=== PATIENT | male | born 1970 | race Caucasian/White ===

== ENCOUNTER 2023-12-16 14:50 | Emergency (ER) | payer BC, SELFPAY ==
[2023-12-16 15:10] VITALS: BP 141/105
[2023-12-16 18:45] VITALS: BP 127/73; BMI 33.5
[2023-12-16 19:11] LABS: ALT (SGPT) 23 U/L (0-50); AST (SGOT) 25 U/L (17-59); Albumin 4.4 g/dl (3.5-5.0); Alkaline Phosphatase 64 U/L (38-126); Blood Urea Nitrogen 11 mg/dl (9-20); Calcium 8.6 mg/dl (8.4-10.2); Carbon Dioxide 24 mmol/L (22-30); Chloride 98 mmol/L (98-107); Estimated Creatinine Clearance > 125 ml/min; Glucose 139 mg/dl (70-99); Sodium 132 mmol/L (135-145); Total Bilirubin 1.7 mg/dl (0.2-1.3); eGFR > 60.00
[2023-12-16 19:15] LABS: Monotest Negative (Negative)
--- NOTE | 2023-12-16 19:17 | ED.GENMED ---
History of Present Illness
General
Chief Complaint: Fever
Source: patient and spouse
Exam Limitations: none
Time Seen by Provider: 12/16/23 19:02
Nursing documentation reviewed up to this point in time: agreed with
History of Present Illness
History of Present Illness:
52-year-old male presents emergency department complaining of fever of 101 since last night. He was taking amoxicillin off and on for the past 2 weeks due to infected tooth. He saw dentist 9 days ago. He began feeling better and stopped the
antibiotics. He last took Advil at 12 PM today.
Past History
Past History
ED Past Medical History: HTN
ED Past Surgical History: None
Review of Systems
Review of Systems
Allergies reviewed?: Yes
All Other Systems: Not applicable
Constitutional: Reports fever
EENT: Reports mouth pain
Respiratory: Reports no symptoms
Cardiac: Reports no symptoms
ABD/GI: Reports no symptoms
: Reports no symptoms
Musculoskeletal: Reports no symptoms
Skin: Reports no symptoms
Neurological: Reports no symptoms
Endocrine: Reports no symptoms
Hematologic/Lymphatic: Reports no symptoms
Psychiatric: Reports no symptoms
Phy Exam
Physical Exam
Physical Exam:
Physical Exam
General: no apparent distress, not acutely ill
Neck: supple. no meningeal signs. normal posterior pharynx
Heart: s1/s2 regular rate and rhythm, no murmur. equal radial
pulses.
HEENT: Pupils equal round reactive to light, EOMI, poor dentition, no drainage, mildly erythematous gingiva
Lungs: no acute respiratory distress. clear bilaterally
Abdomen: normal bowel sounds. not tender. no CVAT
Neuro: alert and oriented. no focal neurological deficits cranial nerves II through XII intact
Skin: no rash
Psychiatric: well kept. interactive and cooperative
Extremities: no edema. no calf tenderness. negative homans. good distal pulses
Course
Orders/Labs/Results
Orders:
Orders
12/16/23 18:44
IV Insert/Care/Rem.- Treatment PRN
O2 Therapy [RESP] Urgent
Titrate/Wean O2 to maintain O2 sat greater than (%): 93
Special Instructions: TO MAINTAIN CONTINUOUS O2 SATS > OR = 93%
Pulse Ox/cont/shift [RESP] Urgent
Quantity: 1
Special Instructions: CONTINUOUS
12/16/23 18:45
Lactic Acid Q4H
Comment: ON ICE, CANCEL 2ND ORDER IF FIRST LACTIC ACID LEVEL <2
12/16/23 18:53
CMP [Comprehensive Metabolic Panel] Urgent
Complete Blood Count/With Diff Urgent
Lactic Acid Urgent
Monotest Urgent
12/16/23 20:35
Potassium Chloride 10% Elixir [KCl Elixir] 40 meq PO NOW STA
12/16/23 22:45
Lactic Acid Q4H
Comment: ON ICE, CANCEL 2ND ORDER IF FIRST LACTIC ACID LEVEL <2
Abnormal Lab Results
12/16/23
18:53
WBC 4.2 L 10^3/uL
(4.8-10.8)
Hgb 18.2 H g/dL
(13.0-18.0)
MCH 32.1 H pg
(27.0-31.0)
Plt Count 61 L 10^3/uL
(130-400)
Absolute Lymphs (auto) 0.3 L 10^3/uL
(1.2-3.4)
Neutrophils % 84.8 H %
(42.2-75.2)
Lymphocytes % 6.4 L %
(20.5-51.1)
Sodium 132 L mmol/L
(135-145)
Potassium 3.0 L mmol/L
(3.5-5.1)
Glucose 139 H mg/dl
(70-99)
Total Bilirubin 1.7 H mg/dl
(0.2-1.3)
12/16/23 18:53
12/16/23 18:53
Vital Signs
Initial and Last Documented VS:
Initial Vital Signs
Temp Pulse Resp BP Pulse Ox
101.7 F H 97 16 141/105 97
12/16/23 15:10 12/16/23 15:10 12/16/23 15:10 12/16/23 15:10 12/16/23 15:10
Last Documented Vital Signs
Temp Pulse Resp BP Pulse Ox
98.4 F 72 16 127/73 100
12/16/23 18:45 12/16/23 18:45 12/16/23 18:45 12/16/23 18:45 12/16/23 18:45
MDM/Problems Addressed
Differential Diagnosis Includes:
sepsis, dental abscess
MDM/Problems Addressed:
52 yo male with fever, dental caries. No swelling, doubt abscess. No other source of infection. D/c with amoxicillin, f/u with dentist.
Chronic conditions affecting care: HTN
*Pulse Oximetry
Patient hypoxic: no
*EKG
Interpreted by ED Provider?: NA
*Order Desk Caller Interpretation
Rate: Order Desk Caller- N/A
*Critical Care Note
Total Time (30-74mins, 75-104mins- exclusive of procedures): Not Applicable
Data Reviewed
Further Testing Considered But Not Given:
ct face not indicated
Patient Management
Escalation/DeEscalation of care consider admission/obs:
admit not indicated
ED Attending Note
-
Portions of this chart may have been created with voice recognition software.� Occasional wrong word or��sound alike� substitutions may have occurred due to the inherent limitations of voice recognition software.
Discharge Plan
Departure
Patient Disposition: Home (Routine Discharge)
Date of Disposition: 12/16/23
Time of Disposition: 20:44
Patient with high blood pressure during this ER visit?: Yes
Condition: Good
Discharge Problem:
Fever, Dental infection
Instructions: Dental Pain ED, Fever, Adult ED, BLOOD PRESSURE
Prescriptions:
New
amoxicillin 500 mg capsule
500 mg PO TID Qty: 21 0RF
Referrals:
Ricardo Mejia MD [Family Provider] - Call in 1-3 days for appt
Activity Restrictions/Additional Instructions:
Follow up with dentist next week. Return for any concerns.
Interventions
Interventions:
*Risk Screen - Suicide Last Done: 12/16/23 15:10
*General Assessment Last Done: 12/16/23 15:10
*Neglect/Abuse Screening Last Done: 12/16/23 15:10
ED- Fall Risk Assessment Last Done: 12/16/23 19:14
ED- Neurological Assessment Last Done: 12/16/23 19:14
ED-Skin Assessment Last Done: 12/16/23 19:14
Discharge Date and Time
Print Language: ARGENTINE
[2023-12-16 19:19] LABS: % Basophils 0.5 % (0-2); % Lymphocytes 6.4 % (20.5-51.1); % Monocytes 8.3 % (1.7-9.3); % Neutrophils 84.8 % (42.2-75.2); Absolute Lymphocytes 0.3 10^3/uL (1.2-3.4); Absolute Monocytes 0.4 10^3/uL (0.1-0.6); Absolute Neutrophils 3.6 10^3/uL (1.4-6.5); Hematocrit 51.1 % (39.0-52.0); Hemoglobin 18.2 g/dL (13.0-18.0); Mean Corp Hgb Conc. 35.6 g/dL (33.0-37.0); Mean Corpuscular Hgb 32.1 pg (27.0-31.0); Mean Corpuscular Volume 90.1 fL (80.0-94.0); Mean Platelet Volume 9.6 fL (7.4-10.4); Nucleated Red Blood Cells % 0 % (-); Platelet Count 61 10^3/uL (130-400); Red Blood Cell Count 5.67 10^6/uL (4.70-6.10); Red Cell Dist. Width 12.1 % (11.5-14.5); White Blood Cell Count 4.2 10^3/uL (4.8-10.8)
[2023-12-16] MEDS: KCL ELIXIR 40 MEQ PO (20:56)
== END 2023-12-16 21:06 | disposition home or self-care (01) ==
LOC: EMR 14:50
PROVIDERS: Emergency Medicine; EMERGENCY PHYSICIAN Emergency Medicine; FAMILY PHYSICIAN Internal Medicine
DX: R50.9 Fever, unspecified (principal); K04.7 Periapical abscess without sinus; I10 Essential (primary) hypertension
CPT/HCPCS: 99283; 80053; 83605; 85025; 86308

== ENCOUNTER 2024-12-11 04:15 | Emergency (ER) | payer BC, SELFPAY ==
[2024-12-11 04:17] VITALS: BP 150/82
[2024-12-11] MEDS: ANUSOL HC 25 MG RECTAL (05:17)
[2024-12-11 05:44] VITALS: BP 115/63
--- NOTE | 2024-12-11 05:47 | ED.GENMED ---
History of Present Illness
General
Chief Complaint: Bowel Problem
Source: patient
Exam Limitations: none
Time Seen by Provider: 12/11/24 04:47
Nursing documentation reviewed up to this point in time: agreed with
History of Present Illness
History of Present Illness:
This is a 53-year-old gentleman with history of hypertension as well as sporadic episodes of external hemorrhoids, generally resolve without incident. Over the past week however he has noted moderately painful external hemorrhoid that began
bleeding 3 days ago. Intermittent bleeding has persisted over the past 3 days but he does note that hemorrhoid is much less painful and smaller in size. No difficulty moving his bowels nor bladder. No abdominal pain. He has not been passing
clots nor maroon blood. No fever nor chills.
He takes no anticoagulants.
Past History
Past History
ED Past Medical History: HTN
ED Past Surgical History: None
Social History
Tobacco: Non-smoker
Alcohol: Occasional
Personal:
Living: with family
Employment: Employed
Family History
Family History: Other (Noncontributory)
Phy Exam
Physical Exam
Physical Exam:
GENERAL: 53-year-old gentleman appears his stated age, awake and alert, pleasant, appears in no acute distress.
EYE: anicteric
NECK: Supple, nontender, no meningismus, no significant adenopathy.
ENT: oral mucosa is moist.
CARDIAC: Regular rate and rhythm. no murmur.
LUNGS: Clear breath sounds bilaterally, no acute respiratory distress, no wheezes/rales/rhonchi
ABDOMEN: Soft, nondistended, without focal tenderness, no r/g, no cvat. normoactive BS.
Rectal exam with 1 moderate-sized external hemorrhoid with 2 small circular scabbed areas medial aspect with scant bleeding only noted with direct palpation. There is no erythema. No perirectal tenderness nor soft tissue swelling nor erythema.
NEUROLOGICAL: Alert and oriented x3, no focal neuro deficits. Gait is monae and steady.
SKIN: Warm and dry, normal color, skin intact. No rash.
MUSCULOSKELETAL: No C/C/E. peripheral pulses are full and equal b/l. No palpable tenderness.
PSYCH: Normal and appropriate interaction.
Course
Orders/Labs/Results
Orders:
Orders
12/11/24 04:59
Anusol Hc Suppository [Anusol Hc] 25 mg RECTAL NOW STA
Vital Signs
Initial and Last Documented VS:
Initial Vital Signs
Temp Pulse Resp BP Pulse Ox
98 F 65 20 150/82 98
12/11/24 04:17 12/11/24 04:17 12/11/24 04:17 12/11/24 04:17 12/11/24 04:17
Last Documented Vital Signs
Temp Pulse Resp BP Pulse Ox
98 F 55 14 115/63 99
12/11/24 04:17 12/11/24 05:44 12/11/24 05:44 12/11/24 05:44 12/11/24 05:44
MDM/Problems Addressed
Differential Diagnosis Includes:
Patient presents with bleeding external hemorrhoid.
Noted to have scant blood from hemorrhoid only appreciable with direct palpation. Hemorrhoid is without thrombosis nor infection/abscess formation.
Nothing in history to suggest significant bleeding.
On no anticoagulants and no history of coagulopathy.
Overall well in appearance, normal vital signs; at this point no indication for laboratory studies nor imaging.
Recommend supportive measures, will start a course of Anusol suppositories.
Recommend fiber rich diet, adding Metamucil or Benefiber, avoid straining to pass a bowel movement.
Will refer to colorectal surgery for follow-up.
*Pulse Oximetry
SaO2: 99
Oxygen Mode of Delivery: Room air
Patient hypoxic: no
*Critical Care Note
Total Time (30-74mins, 75-104mins- exclusive of procedures): Not Applicable
ED Attending Note
-
Portions of this chart may have been created with voice recognition software.� Occasional wrong word or��sound alike� substitutions may have occurred due to the inherent limitations of voice recognition software.
Discharge Plan
Departure
Patient Disposition: Home (Routine Discharge)
Date of Disposition: 12/11/24
Time of Disposition: 05:48
Patient with high blood pressure during this ER visit?: No
Condition: Good
Discharge Problem:
External bleeding hemorrhoids
Instructions: Hemorrhoids - ED discharge instructions
Prescriptions:
New
hydrocortisone acetate [Anusol-HC] 25 mg suppository
25 mg DE BID Qty: 30 0RF
No Action
amoxicillin 500 mg capsule
500 mg PO TID Qty: 21 0RF
Referrals:
Santino Bush MD [Active, [facility]] - Call in 1-3 days for appt
Ricardo Mejia MD [Family Provider]
Interventions
Interventions:
*Risk Screen - Suicide Last Done: 12/11/24 04:17
*General Assessment Last Done: 12/11/24 05:02
*Neglect/Abuse Screening Last Done: 12/11/24 04:17
*ED- Fall Risk Assessment Last Done: 12/11/24 05:02
*ED COVID-19 Vaccine History Last Done: 12/11/24 05:02
CJ-Kweylt-Rksgleiujk Assessment Last Done: 12/11/24 04:40
Discharge Date and Time
Print Language: CHINESE
[2024-12-11 05:54] VITALS: BP 115/63
== END 2024-12-11 05:58 | disposition home or self-care (01) ==
LOC: EMR 04:15
PROVIDERS: EMERGENCY PHYSICIAN Emergency Medicine; FAMILY PHYSICIAN Internal Medicine
DX: K64.4 Residual hemorrhoidal skin tags (principal); I10 Essential (primary) hypertension
CPT/HCPCS: 99283